=== PATIENT | female | born 1970 | race Caucasian/White ===

== ENCOUNTER 2016-12-17 21:53 | Emergency (ER) | payer MEDICAID, OTHER ==
[2016-12-17] MEDS ORDERED: KETOROLAC TROMETHAMINE 30 MG/ML VIAL IV ONE (23:05)
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
[2016-12-17] MEDS ORDERED: KETOROLAC TROMETHAMINE 30 MG/ML VIAL ONE (23:10)
--- OUTSIDE RECORDS SUMMARY | 2016-12-17 23:24 | XMS REPORT | Continuity of Care Document ---
:1970 Author Organization [facility] ([facility]) Address [address] [place] [address] Phone [phone] Care Team Providers Name Role Phone Darrell Nuñez Primary Care Provider [phone] Source Comments This disclosure is being made pursuant to the Care Everywhere program, applicable federal and state laws, and may not contain all informaitonavailable regarding this patient.[facility] ([facility]) Active Allergies and Adverse Reactions Allergen Noted Date Severity Reactions Comments Erythromycin 06/13/2012 Angioedema,Rash Latex 09/10/2012 Low Rash Morphine 06/13/2012 Hypotension Tropicamide 06/13/2012 Nausea & Vomiting Current Medications Prescription Sig. Disp. Refills Start Date End Date Status fludrocortisone 0.1 mg Take 0.1 mg by Active tablet mouth 3 times daily. montelukast (SINGULAIR) 10 Take 10 mg by Active mg tablet mouth daily. lansoprazole 30 mg capsule Take 30 mg by Active mouth 2 times daily. ascorbic acid (VITAMIN C) Take 1,000 mg by Active 1,000 mg tablet mouth daily. VITAMIN E ACETATE (VITAMIN Take 1,000 mg by Active E PO) mouth daily. FERROUS FUMARATE/VIT Take by mouth. Active BCOMP&C (SUPER B COMPLEX PO) CALCIUM CARBONATE/VITAMIN Take by mouth Active D3 (CALCIUM WITH VITAMIN D daily. PO) Milnacipran (SAVELLA) 25 mg Take 50 mg by Active Tab mouth 2 times daily. 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
[2016-12-17 23:31] LABS: Hematocrit 44.3 % (37.0-47.0); Mean Cell Volume 91.2 fl (78-100); Mean Corpuscular Hemoglobin 30.9 pg (27-31); Mean Corpuscular Hgb Conc 33.9 g/dl (32-36); Mean Platelet Volume 9.6 fl (6.0-9.5); Neutrophil # 8.9 K/mm3 (1.3-6.0); Neutrophil % 65.8 % (42-75.0); Platelet Count 307 K/mm3 (150-450); Red Blood Count 4.86 M/mm3 (4.2-5.4); Red Cell Distribution Width 12.7 % (11.5-14.0); White Blood Count 13.5 K/mm3 (4.0-10.5)
[2016-12-17 23:51] LABS: Albumin * 3.6 gm/dl (3.4-5.0); Anion Gap 13.1 mmol/L (6.8-13.8); BUN/Creatinine Ratio 23.3 (9.0-21.6); Bilirubin, Total 0.2 mg/dL (0.0-1.1); Ca. Corrected For Albumin 8.6 mg/dL (8.4-10.2); Calcium * 8.6 mg/dL (7.9-10.9); Carbon Dioxide 27.3 mmol/L (24-32.6); Potassium 3.4 mmol/L (3.4-4.6); Total Protein 7.1 gm/dL (6.2-8.2)
[2016-12-18] MEDS ORDERED: NORMAL SALINE 1,000 ML IV ONE (01:19)
[2016-12-18] MEDS ORDERED: HYDROmorphone HCL 1 MG/ML DISP.SYRIN IV ONE ×2 (01:19→01:56)
[2016-12-18] MEDS ORDERED: HYDROmorphone HCL 1 MG/ML DISP.SYRIN ONE (01:20)
[2016-12-18 02:55] VITALS: BP 86/44
== END 2016-12-18 02:50 | disposition home or self-care (01) ==
LOC: ER 21:53
DX: R07.9 Chest pain, unspecified (principal); R10.9 Unspecified abdominal pain; M25.519 Pain in unspecified shoulder; S09.90XA Unspecified injury of head, initial encounter; M54.2 Cervicalgia; Y04.2XXA Assault by strike against or bumped into by another person, initial encounter; F17.210 Nicotine dependence, cigarettes, uncomplicated
CPT/HCPCS: 36415; 70486; 71260; 72125; 73030; 74177; 80053; 85025; 96374; 96375; 99283; G0481